=== PATIENT | female | born 1940 | race Caucasian/White ===

== ENCOUNTER 2016-11-29 12:31 | Day surgery (SDC) | payer OTHER ==
[2016-11-27 14:58] VITALS: BMI 25.7
--- NOTE | 2016-11-29 15:31 | HP ---
Admitting History and Physical - Admission Chief Complaint: Abnormal radiologic findings History of Present Illness: 76 yo Para 5 with abnormal radiologic finding is Pre op for D&C Hysteroscopy. History Source: Patient Limitations to Obtaining History: No Limitations - Past Medical History ...: No ...Para: 5 - Past Surgical History Past Surgical History: Yes: None - Smoking History Smoking history: Never smoked - Alcohol/Substance Use Hx Alcohol Use: No History of Substance Use: reports: None - Social History Usual Living Arrangement: Yes: With Spouse History of Recent Travel: No Home Medications - Allergies Allergies/Adverse Reactions: Allergies Allergy/AdvReac Type Severity Reaction Status Date / Time Penicillins Allergy Verified 11/27/16 14:58 - Home Medications Home Medications: Ambulatory Orders Aspirin [ASA -] 81 mg PO DAILY 11/27/16 Losartan Potassium 50 mg PO DAILY 11/27/16 Metformin HCl [Metformin HCl ER] 1,000 mg PO BID 11/27/16 Nebivolol HCl [Bystolic] 5 mg PO DAILY 11/27/16 Family Disease History - Family Disease History Family History: Unremarkable Review of Systems - Review of Systems Constitutional: reports: No Symptoms Eyes: reports: No Symptoms HENT: reports: No Symptoms Neck: reports: No Symptoms Respiratory: reports: No Symptoms Gastrointestinal: reports: No Symptoms Genitourinary: reports: No Symptoms Breasts: reports: No Symptoms Reported Musculoskeletal: reports: No Symptoms Integumentary: reports: No Symptoms Neurological: reports: No Symptoms Endocrine: reports: No Symptoms Hematology/Lymphatic: reports: No Symptoms Psychiatric: reports: No Symptoms Pain Intensity: 0 Physical Examination Vital Signs: Vital Signs Temperature 98.3 F 11/29/16 13:24 Pulse Rate 77 11/29/16 13:24 Respiratory Rate 18 11/29/16 13:24 Blood Pressure 154/77 11/29/16 13:24 O2 Sat by Pulse Oximetry (%) 97 11/29/16 13:29 Constitutional: Yes: Well Nourished Eyes: Yes: Conjunctiva Clear HENT: Yes: Atraumatic Neck: Yes: Supple Respiratory: Yes: Regular Gastrointestinal: Yes: Normal Bowel Sounds Neurological: Yes: Alert, Oriented ...Motor Strength: WNL Psychiatric: Yes: Alert, Oriented Problem List - Problems (1) Endometrial polyp Code(s): N84.0 - POLYP OF CORPUS UTERI Assessment/Plan Endometrial polyp Pre op for D&C Hysteroscopy Consent signed Anesthesia to see patient
--- NOTE | 2016-11-29 15:53 | OP ---
Operative Note - Note: Operative Date: 11/29/16 Pre-Operative Diagnosis: Endometrial polyp Operation: D&C Hysteroscopy Findings: Endometrial lesions not consistent with polyps Post-Operative Diagnosis: Same as Pre-op Surgeon: More Casper Anesthesia: General Specimens Removed: Endometrial curettings Estimated Blood Loss (mls): 5
[2016-11-29] MEDS ORDERED: PROPOFOL 20 ML ONE (16:22)
[2016-11-29] MEDS ORDERED: KETOROLAC TROMETHAMINE 30 MG/1 ML VIAL ONE (16:32)
[2016-11-29] MEDS ORDERED: ONDANSETRON 4 MG/2 ML VIAL ONE (16:32)
[2016-11-29] MEDS ORDERED: DEXAMETHASONE SOD PHOSPHATE 4 MG/1 ML VIAL ONE (16:32)
[2016-11-29] MEDS ORDERED: oxyCODONE HCL 5 MG TABLET PO PRN ×2 (17:01)
[2016-11-29] MEDS ORDERED: PROMETHAZINE HCL 25 MG/1 ML VIAL IVPUSH PRN (17:01)
[2016-11-29] MEDS ORDERED: ONDANSETRON 4 MG/2 ML VIAL IVPUSH PRN (17:01)
[2016-11-29] MEDS ORDERED: LACTATED RINGERS SOLUTION 1,000 ML IV SCH (17:15)
[2016-11-29] MEDS ORDERED: oxyCODONE HCL 5 MG TABLET ONE (17:24)
[2016-11-29 17:47] VITALS: TEMP 97.8
[2016-11-29 19:31] VITALS: BP 176/80; PULSE 64
--- NOTE | 2016-12-04 15:43 | PATH ---
Surgical Pathology Report Patient Name: ADELE PACHECO [facility]. Rec. #: [id number] /Age/Gender: 1940 (Age: 76) / F Account: [id number] Location: [facility] Taken: 11/29/2016 Received: 11/30/2016 Reported: 12/04/2016 Physicians: More Casper M.D. Specimen(s) Received ENDOMETRIAL CURETTINGS Clinical History Postmenopausal bleeding Final Diagnosis ENDOMETRIUM, CURETTAGE: HIGH-GRADE ENDOMETRIAL ADENOCARCINOMA (SEE COMMENT). BACKGROUND FRAGMENTS OF ATROPHIC ENDOMETRIUM AND SCANT FRAGMENTS OF BENIGN ENDOCERVICAL TISSUE. Comment: The sections show fragments of a high grade adenocarcinoma comprised of large neoplastic cells with irregular nuclei with prominent nucleoli and variable amount of amphophilic and clear cytoplasm. The neoplastic cells are arranged in sheets with focal papillary structures with hyalinization. Numerous interspersed neutrophils are present. Immunohistochemical stains performed at [facility] [employer] [place], [place] ([id number]) on block #2 and interpreted at [facility] show the following: The tumor cells are positive for PAX8, focally weakly reactive for p53 immunostain, and are negative for WT1 and p16 immunostains; Her2 IHC is negative (0%). ER and HI immunostains performed and interpreted at [facility] on block #3 show weak reactivity for ER in approximately 30% of cells; HI is negative. Overall, the morphologic findings and the immunoprofile are of high grade adenocarcinoma, suggestive of clear cell carcinoma of endometrium. Other high-grade endometrial adenocarcinomas may show similar morphologic findings; however, serous carcinoma is usually strongly positive for p53 and p16; high-grade endometrioid adenocarcinoma usually retains moderate to strong ER reactivity. DNA Mismatch Repair (MMR) protein expression analysis by IHC performed at the [employer] [place], [place] ([id number]) on block #2 and interpreted [facility] shows the following: Results: hMLH-1 DNA Mismatch Repair Protein: Intact nuclear expression hMSH-2 DNA Mismatch Repair Protein: Intact nuclear expression hMSH-6 DNA Mismatch Repair Protein: Intact nuclear expression PMS2 DNA Mismatch Repair Protein: Intact nuclear expression Interpretation: No defect in DNA Mismatch Repair (MMR) protein expression is identified by IHC. This result is usually seen in MSI-H stable tumors and is not associated with HNPCC (Vela syndrome). The case was discussed with Dr. Casper on 12/04/16. Electronically Signed Jarek Aguilar M.D. Gross Description Received in formalin labeled "endometrial curetting" is a 3.3 x 3.0 x 0.4 cm aggregate of perez-brown soft tissue fragments admixed with blood clot. The formalin is filtered and the specimen is entirely submitted in 3 cassettes. 11/30/2016 saudi11/30/2016
== END 2016-11-29 19:05 | disposition home or self-care (01) ==
LOC: JASU-SURG 12:31
PROVIDERS: ATTEND Obstetrics & Gynecology
PROC: 0UDB8ZX Extraction of Endometrium, Via Natural or Artificial Opening Endoscopic, Diagnostic (ICD-10-PCS; principal; 2016-11-29 14:30)
DX: R93.8 Abnormal findings on diagnostic imaging of other specified body structures (principal)
CPT/HCPCS: 88305-TC; 88342-TC; 94760

== ENCOUNTER 2016-12-18 11:59 | Inpatient (IN) | payer OTHER ==
[2016-12-15 17:10] VITALS: BMI 26.9
[2016-12-18] MEDS ORDERED: ROPIVACAINE HCL 0.5% 30ML VIAL ONE ×3 (13:07→16:41)
[2016-12-18] MEDS ORDERED: MIDAZOLAM HCL 2 MG/2 ML SINGLE DOSE VIAL ONE ×2 (13:09)
[2016-12-18] MEDS ORDERED: PROPOFOL 20 ML ONE ×2 (13:41→13:59)
[2016-12-18] MEDS ORDERED: ROCURONIUM BROMIDE 50 MG/5 ML VIAL ONE (13:59)
[2016-12-18] MEDS ORDERED: PROMETHAZINE HCL 25 MG/1 ML VIAL IVPB PRN (14:07)
[2016-12-18] MEDS ORDERED: PROMETHAZINE HCL 25 MG/1 ML VIAL IVPUSH PRN (14:07)
[2016-12-18] MEDS ORDERED: ONDANSETRON 4 MG/2 ML VIAL IVPUSH PRN ×2 (14:07)
[2016-12-18] MEDS ORDERED: DEXAMETHASONE SOD PHOSPHATE 4 MG/1 ML VIAL IVPUSH PRN (14:07)
[2016-12-18] MEDS ORDERED: HYDROmorphone *PCA* 10MG/50ML DISP.SYRIN PCA SCH (14:15)
[2016-12-18] MEDS ORDERED: LACTATED RINGERS SOLUTION 1,000 ML IV SCH (14:15)
--- NOTE | 2016-12-18 14:21 | HP ---
Admitting History and Physical - Admission Chief Complaint: Abnormal vaginal bleeding History of Present Illness: 76 yo Para 5, with h/o Hypertension and Heart disease, diagnosed with endometrial adenocarcinoma, is Pre op for total abdominal hysterectomy and lymph node biopsy. Oncologist Dr. Garcia is present. History Source: Patient Limitations to Obtaining History: No Limitations - Past Medical History ...: No ...Para: 5 - Past Surgical History Additional Past Surgical History: Heart surgery - Smoking History Smoking history: Never smoked Have you smoked in the past 12 months: No - Alcohol/Substance Use Hx Alcohol Use: No History of Substance Use: reports: None - Social History Usual Living Arrangement: Yes: With Spouse History of Recent Travel: No Home Medications - Allergies Allergies/Adverse Reactions: Allergies Allergy/AdvReac Type Severity Reaction Status Date / Time Penicillins Allergy "I CAN'T Verified 12/18/16 13:02 REMEMBER" - Home Medications Home Medications: Ambulatory Orders Aspirin [ASA -] 81 mg PO DAILY 11/27/16 Metformin HCl [Metformin HCl ER] 1,000 mg PO AC 11/27/16 Nebivolol HCl [Bystolic] 5 mg PO DAILY 11/27/16 Esomeprazole Magnesium 20 mg PO DAILY 12/18/16 Ferrous Sulfate [Feosol] 325 mg PO DAILY 12/18/16 Furosemide 20 mg PO DAILY 12/18/16 Losartan/Hydrochlorothiazide [Hyzaar 50-12.5 Tablet] 1 each PO DAILY 12/18/16 Spironolactone 25 mg PO DAILY 12/18/16 Family Disease History - Family Disease History Family History: Unremarkable Review of Systems - Review of Systems Constitutional: reports: No Symptoms Eyes: reports: No Symptoms HENT: reports: No Symptoms Neck: reports: No Symptoms Cardiovascular: reports: No Symptoms Respiratory: reports: No Symptoms Gastrointestinal: reports: Other (Abdominal p) Genitourinary: reports: Vaginal Bleeding Breasts: reports: No Symptoms Reported Musculoskeletal: reports: No Symptoms Integumentary: reports: No Symptoms Neurological: reports: No Symptoms Endocrine: reports: No Symptoms Hematology/Lymphatic: reports: No Symptoms Psychiatric: reports: No Symptoms Pain Intensity: 5 Physical Examination Vital Signs: Vital Signs Temperature 98.4 F 12/18/16 12:59 Pulse Rate 87 12/18/16 12:59 Respiratory Rate 20 12/18/16 12:59 Blood Pressure 105/53 12/18/16 12:59 O2 Sat by Pulse Oximetry (%) 99 12/18/16 12:55 Constitutional: Yes: Well Nourished Eyes: Yes: Conjunctiva Clear HENT: Yes: Atraumatic Neck: Yes: Supple Cardiovascular: Yes: Regular Rate and Rhythm Respiratory: Yes: Regular, CTA Bilaterally Gastrointestinal: Yes: Normal Bowel Sounds Neurological: Yes: Alert, Oriented ...Motor Strength: WNL Psychiatric: Yes: Alert, Oriented Problem List - Problems (1) Endometrial adenocarcinoma Code(s): C54.1 - MALIGNANT NEOPLASM OF ENDOMETRIUM (2) Abnormal vaginal bleeding Code(s): N93.9 - ABNORMAL UTERINE AND VAGINAL BLEEDING, UNSPECIFIED Assessment/Plan Endometrial adenocarcinoma Pre op for WILIAM / BSO and lymph node biopsy Consent signed Anesthesia to see patient
[2016-12-18] MEDS ORDERED: HEPARIN NA (PORCINE) 5,000 UNITS/ML 1ML VIAL ONE (14:26)
[2016-12-18] MEDS ORDERED: HEPARIN NA (PORCINE) 5,000 UNITS/ML 1ML VIAL SQ ONE ×2 (14:30)
[2016-12-18] MEDS ORDERED: ceFAZolin SODIUM 1 GM VIAL ONE (14:36)
[2016-12-18] MEDS ORDERED: ceFAZolin SODIUM 1 GM VIAL IVPB ONE (14:40)
[2016-12-18] MEDS ORDERED: DEXAMETHASONE SOD PHOSPHATE 4 MG/1 ML VIAL ONE (14:44)
[2016-12-18] MEDS ORDERED: ONDANSETRON 4 MG/2 ML VIAL ONE (14:44)
[2016-12-18] MEDS ORDERED: BUPIVACAINE HCL/PF 0.5% (5MG/ML) 10 ML VIAL ONE (15:49)
[2016-12-18] MEDS ORDERED: ACETAMINOPHEN 1000 MG/100 ML VIAL (NON FORMULARY) IVPB PRN (15:52)
--- NOTE | 2016-12-18 15:56 | OP ---
Operative Note - Note: Operative Date: 12/18/16 Pre-Operative Diagnosis: Endometrial adenocarcinoma Operation: Total abdominal hysterectomy / Pelvic lavage / Lypmph nodes biopsy / Omentectomy Findings: Hard uterus and enlarged lymph nodes Post-Operative Diagnosis: Same as Pre-op Surgeon: More Casper (Dr. Garcia) Anesthesia: General Estimated Blood Loss (mls): 100
[2016-12-18] MEDS ORDERED: NEOSTIGMINE METHYLSULFATE 0.5 MG/ML - 10 ML MDV ONE (16:00)
--- NOTE | 2016-12-18 16:23 | OPR ---
12/18/16 INTRAOP CONSULT I WAS CALLED BY DR. PRICE INTROOPERATIVELY FOR PATIENT WITH ADVANCED METASTATIC ENDOMETRIAL CANCER DIAGNOSIS: HIGH GRADE ENDOMETRIAL CANCER PROCEDURE: TOTAL ABDOMINAL HYSTERECTOMY, BILATERAL SALPINGOOOPHORECTOMY, PELVIC AND PARAAORTIC NODE DISSECTION AND OMENTAL BIOPSY SURGEON: ANA CAMACHO CO-SURGEON: Jaguar PRICE ANESTHESIA: GENERAL EBL: 200CC OP FINDINGS: 10 CM UTERUS WITH TUMOR INFILTRATING TO THE SEROSA AND POSSIBLE EXTENSION TO THE BLADDER FLAP. ENLARGED PELVIC AND PARA-AORTIC NODES RESIDUAL NONE PROCEDURE: UNDER GENERAL ANESTHESIA, SKIN WAS PREPED AND DRAPED FOR ABDOMINAL SURGERY. A VERTICAL INCISION WAS MADE. INCISION CARRIED THROUGH FASCIA TO PERITONEAL CAVITY. PELVIC WASHINGS WAS PERFORMED. BOWELS WERE PACKED AWAY. A BELFOUR RETRACTOR WAS PLACED. POSTERIOR LEAFLETS WERE OPENED. URETERS WERE IDENTIFIED. IP LIGAMENTS WERE CAUTERIZED AND CUT. BLADDER FLAP WERE DISSECTED AWAY. UTERINE VESSELS WERE SKELELONIZED. UTERINE VESSELS WERE CLAMPED CUT AND LIGATED. CARDINAL LIGAMENTS WERE CLAMPED CUT AND LIGATED. VAGINA WAS ENTERED AND UTERUS WAS REMOVED. VAGINA WAS CLOSED WITH VICRYL SUTURES INTERRUPTEDLY. PELVIC AND PARA-AORTIC NODES WERE DISSECTED. BULKY NODES WERE REMOVED CAREFULLY WITHOUT INJURY. THIS WAS DONE ON BOTH SIDES. A SMALL PIECE OF OMENTUM WAS RESECTED WITH LIGASURE WITHOUT INJURY. AT THE END WE MADE SURE NO INJURIES WERE NOTED. ALL SURGICAL SITES WERE DRY. COUNTS WERE CORRECT TIMES THREE. FASCIA WAS CLOSED WITH VICRYL 1. 4o MONOCRYL WAS USED TO CLOSE THE SKIN. SHE WAS EXTUBATED AND TRANSPORTED TO THE RECOVERY IN STABLE CONDITIONS. ANA CAMACHO MD
[2016-12-18] MEDS ORDERED: ACETAMINOPHEN INJECTION 100 ML IVPB ONE (16:28)
[2016-12-18] MEDS ORDERED: HYDROmorphone *PCA* 10MG/50ML DISP.SYRIN PCA ONE (16:28)
[2016-12-18] MEDS: DEXTROSE 5%-LACTATED RINGERS 1,000 ML IV SCH (18:47)
[2016-12-19] MEDS: DEXTROSE 5%-LACTATED RINGERS 1,000 ML IV SCH (01:23)
--- NOTE | 2016-12-19 07:59 | PN ---
Progress Note, Physician Chief Complaint: Abnormal vaginal bleeding History of Present Illness: 76 yo Para 5 with h/o abnormal vaginal bleeding caused by endometrial adenocarcinoma, is status post WILIAM / BSO and lypmph nodes biopsy. Patient seen and evaluated. She's lying in bed. No complaints. - Current Medication List Current Medications: Active Medications Acetaminophen (Tylenol -) 650 mg PO Q4H PRN PRN Reason: FEVER OR PAIN Aspirin (Asa -) 81 mg PO DAILY [facility] Fentanyl (Sublimaze Injection -) 50 mcg IVPUSH [id number] PRN PRN Reason: PAIN Stop: 12/21/16 14:08 Furosemide (Lasix -) 20 mg PO DAILY [facility] HCTZ/Losartan Potassium (Hyzaar -) 1 tab PO DAILY [facility] Hydromorphone HCl (Dilaudid Seat Joiner Chainstitch -) 0 mg FILTER PLANT SUPERVISOR ASDIR ALEX PRN Reason: Protocol Lactated Ringer's (Lactated Ringers Solution) 1,000 mls @ 125 mls/hr IV ASDIR ALEX Dextrose/Lactated Ringer's (D5-Lr -) 1,000 mls @ 125 mls/hr IV ASDIR ALEX Last Admin: 12/19/16 01:23 Dose: 125 mls/hr Losartan Potassium (Cozaar -) 50 mg PO DAILY [facility] Nebivolol (Bystolic -) 5 mg PO DAILY [facility] Nebivolol (Bystolic -) 5 mg PO DAILY [facility] Non-Formulary Medication (Esomeprazole Magnesium [Esomeprazole Magnesium]) 20 mg PO DAILY [facility] Non-Formulary Medication (Ferrous Sulfate [Feosol]) 325 mg PO DAILY [facility] Non-Formulary Medication (Metformin Hcl [Metformin Hcl Er]) 1,000 mg PO AC [facility] Promethazine HCl (Phenergan Injection -) 12.5 mg IVPB Q6H PRN PRN Reason: NAUSEA AND/OR VOMITING Spironolactone (Aldactone -) 25 mg PO DAILY [facility] - Objective Vital Signs: Vital Signs Temperature 99.8 F H 12/19/16 06:00 Pulse Rate 88 12/19/16 06:00 Respiratory Rate 18 12/19/16 06:00 Blood Pressure 116/54 12/19/16 06:00 O2 Sat by Pulse Oximetry (%) 100 12/18/16 20:26 Constitutional: Yes: Well Nourished Eyes: Yes: Conjunctiva Clear HENT: Yes: Atraumatic Neck: Yes: Supple Cardiovascular: Yes: Regular Rate and Rhythm Respiratory: Yes: Regular Gastrointestinal: Yes: Normal Bowel Sounds Genitourinary: Yes: WNL Extremities: Yes: Other (Venodyne boots in place) Wound/Incision: Yes: Clean/Dry, Well Approximated Neurological: Yes: Alert, Oriented Psychiatric: Yes: Alert, Oriented Problem List - Problems (1) Endometrial adenocarcinoma Code(s): C54.1 - MALIGNANT NEOPLASM OF ENDOMETRIUM (2) Abnormal vaginal bleeding Code(s): N93.9 - ABNORMAL UTERINE AND VAGINAL BLEEDING, UNSPECIFIED (3) Status post total abdominal hysterectomy and bilateral salpingo- oophorectomy (WILIAM-BSO) Code(s): Z90.710 - ACQUIRED ABSENCE OF BOTH CERVIX AND UTERUS Z90.722 - ACQUIRED ABSENCE OF OVARIES, BILATERAL Z90.79 - ACQUIRED ABSENCE OF OTHER GENITAL ORGAN(S) Assessment/Plan Status post WILIAM / BSO D/C FILTER PLANT SUPERVISOR D/C Merino catheter Percocet PRN pain Clear liquid diet Continue post op care
--- NOTE | 2016-12-19 08:12 | PN ---
Progress Note, Physician Chief Complaint: s/p open TAHBSO under general anesthesia History of Present Illness: post op day one with hydromorphone [employer] as post op pain management. - Current Medication List Current Medications: Active Medications Acetaminophen (Tylenol -) 650 mg PO Q4H PRN PRN Reason: FEVER OR PAIN Aspirin (Asa -) 81 mg PO DAILY [facility] Fentanyl (Sublimaze Injection -) 50 mcg IVPUSH [id number] PRN PRN Reason: PAIN Stop: 12/21/16 14:08 Furosemide (Lasix -) 20 mg PO DAILY [facility] HCTZ/Losartan Potassium (Hyzaar -) 1 tab PO DAILY [facility] Hydromorphone HCl (Dilaudid Chief Librarian Music Department -) 0 mg [employer] ASDIR ALEX PRN Reason: Protocol Lactated Ringer's (Lactated Ringers Solution) 1,000 mls @ 125 mls/hr IV ASDIR ALEX Dextrose/Lactated Ringer's (D5-Lr -) 1,000 mls @ 125 mls/hr IV ASDIR ALEX Last Admin: 12/19/16 01:23 Dose: 125 mls/hr Losartan Potassium (Cozaar -) 50 mg PO DAILY [facility] Nebivolol (Bystolic -) 5 mg PO DAILY [facility] Nebivolol (Bystolic -) 5 mg PO DAILY [facility] Non-Formulary Medication (Esomeprazole Magnesium [Esomeprazole Magnesium]) 20 mg PO DAILY [facility] Non-Formulary Medication (Ferrous Sulfate [Feosol]) 325 mg PO DAILY [facility] Non-Formulary Medication (Metformin Hcl [Metformin Hcl Er]) 1,000 mg PO AC [facility] Promethazine HCl (Phenergan Injection -) 12.5 mg IVPB Q6H PRN PRN Reason: NAUSEA AND/OR VOMITING Spironolactone (Aldactone -) 25 mg PO DAILY [facility] - Objective Vital Signs: Vital Signs Temperature 99.8 F H 12/19/16 06:00 Pulse Rate 88 12/19/16 06:00 Respiratory Rate 18 12/19/16 06:00 Blood Pressure 116/54 12/19/16 06:00 O2 Sat by Pulse Oximetry (%) 100 12/18/16 20:26 Constitutional: Yes: Well Nourished Cardiovascular: Yes: WNL Respiratory: Yes: WNL Gastrointestinal: Yes: Tenderness Assessment/Plan Patient reports minimal pain, controlled by [employer], no adverse reactions to anesthetic, no nausea or vomiting, [employer] discontinued by primary team this am. Dept of anesthesia will sign off care at this time.
[2016-12-19] MEDS ORDERED: PCA PUMP KEY 1 EACH EACH ONE (08:24)
[2016-12-19] MEDS ORDERED: LOSARTAN 50MG/HCTZ 12.5MG 1 TAB (FP) PO SCH (10:00)
[2016-12-19] MEDS ORDERED: NEBIVOLOL 10 MG TABLET (FP) PO SCH (10:00)
[2016-12-19] MEDS: ASPIRIN 81 MG CHEWABLE TABLETS PO SCH (10:07)
[2016-12-19] MEDS: ACETAMINOPHEN 325 MG TABLET (FP) PO PRN ×2 (10:07→14:46)
[2016-12-19] MEDS: FUROSEMIDE 20 MG TABLET (FP) PO SCH (10:08)
[2016-12-19] MEDS: PANTOPRAZOLE 20 MG TABLET (FP) PO SCH (10:08)
[2016-12-19] MEDS: LOSARTAN POTASSIUM 50 MG TABLET (FP) PO SCH (10:08)
[2016-12-19] MEDS: SPIRONOLACTONE 25 MG TABLET (FP) PO SCH (10:08)
[2016-12-19] MEDS: FERROUS SO4 325 MG TABLET (FP) PO SCH (10:08)
[2016-12-19] MEDS ORDERED: metFORMIN HCL 500 MG TABLET (FP) PO SCH (10:15)
[2016-12-19] MEDS: NEBIVOLOL 5 MG TABLET (FP) PO SCH (10:43)
[2016-12-20] MEDS: metFORMIN HCL 500 MG TABLET (FP) PO SCH ×2 (06:18→16:26)
[2016-12-20] MEDS: ACETAMINOPHEN 325 MG TABLET (FP) PO PRN ×3 (06:23→21:21)
[2016-12-20] MEDS ORDERED: metFORMIN HCL 500 MG TABLET (FP) PO SCH (07:00)
--- NOTE | 2016-12-20 07:58 | PN ---
Progress Note (SOAP) - Subjective Chief Complaint: Pt doing well SP hysterectomy - Current Medications Current Medications: Active Medications Acetaminophen (Tylenol -) 650 mg PO Q4H PRN PRN Reason: FEVER OR PAIN Last Admin: 12/20/16 06:23 Dose: 650 mg Aspirin (Asa -) 81 mg PO DAILY [facility] Last Admin: 12/19/16 10:07 Dose: 81 mg Ferrous Sulfate (Feosol -) 325 mg PO DAILY [facility] Last Admin: 12/19/16 10:08 Dose: 325 mg Furosemide (Lasix -) 20 mg PO DAILY [facility] Last Admin: 12/19/16 10:08 Dose: 20 mg Losartan Potassium (Cozaar -) 50 mg PO DAILY [facility] Last Admin: 12/19/16 10:08 Dose: 50 mg Metformin HCl (Glucophage -) 1,000 mg PO BIDAC [facility] Last Admin: 12/20/16 06:18 Dose: 1,000 mg Nebivolol (Bystolic -) 5 mg PO DAILY [facility] Last Admin: 12/19/16 10:43 Dose: 5 mg Pantoprazole Sodium (Protonix -) 20 mg PO DAILY [facility] Last Admin: 12/19/16 10:08 Dose: 20 mg Promethazine HCl (Phenergan Injection -) 12.5 mg IVPB Q6H PRN PRN Reason: NAUSEA AND/OR VOMITING Spironolactone (Aldactone -) 25 mg PO DAILY [facility] Last Admin: 12/19/16 10:08 Dose: 25 mg - Objective Vital Signs: Vital Signs Temperature 99.1 F 12/19/16 22:00 Pulse Rate 95 H 12/19/16 22:00 Respiratory Rate 18 12/19/16 22:00 Blood Pressure 126/65 12/19/16 22:00 O2 Sat by Pulse Oximetry (%) 96 12/19/16 13:10 Constitutional: Yes: Well Nourished, No Distress Gastrointestinal: Yes: Soft Wound/Incision: Yes: Open to air, Dressing Removed Problem List - Problems (1) Status post total abdominal hysterectomy and bilateral salpingo- oophorectomy (WILIAM-BSO) Code(s): Z90.710 - ACQUIRED ABSENCE OF BOTH CERVIX AND UTERUS Z90.722 - ACQUIRED ABSENCE OF OVARIES, BILATERAL Z90.79 - ACQUIRED ABSENCE OF OTHER GENITAL ORGAN(S) Assessment/Plan POD2 SP WILIAM due to adenocarcinoma Plan OOB continue present management
[2016-12-20] MEDS: SPIRONOLACTONE 25 MG TABLET (FP) PO SCH (09:57)
[2016-12-20] MEDS: FUROSEMIDE 20 MG TABLET (FP) PO SCH (09:57)
[2016-12-20] MEDS: PANTOPRAZOLE 20 MG TABLET (FP) PO SCH (09:57)
[2016-12-20] MEDS: ASPIRIN 81 MG CHEWABLE TABLETS PO SCH (09:57)
[2016-12-20] MEDS: LOSARTAN POTASSIUM 50 MG TABLET (FP) PO SCH (09:57)
[2016-12-20] MEDS: NEBIVOLOL 5 MG TABLET (FP) PO SCH (09:57)
[2016-12-20] MEDS: FERROUS SO4 325 MG TABLET (FP) PO SCH (09:57)
[2016-12-20 23:34] VITALS: PULSE 89
[2016-12-21] MEDS: ACETAMINOPHEN 325 MG TABLET (FP) PO PRN (05:42)
[2016-12-21] MEDS: metFORMIN HCL 500 MG TABLET (FP) PO SCH (06:44)
--- NOTE | 2016-12-21 07:50 | DS ---
Physical Examination Vital Signs: Vital Signs Temperature 99.3 F 12/20/16 22:00 Pulse Rate 89 12/20/16 22:00 Respiratory Rate 16 12/20/16 22:00 Blood Pressure 131/80 12/20/16 22:00 O2 Sat by Pulse Oximetry (%) 97 12/20/16 09:00 Constitutional: Yes: No Distress Eyes: Yes: Conjunctiva Clear HENT: Yes: Atraumatic Neck: Yes: Supple, Trachea Midline Cardiovascular: Yes: Regular Rate and Rhythm Respiratory: Yes: Regular, CTA Bilaterally Gastrointestinal: Yes: Normal Bowel Sounds Musculoskeletal: Yes: WNL Extremities: Yes: WNL Edema: No Discharge Summary Reason For Visit: ENDOMETRIAL ADENOCARCINOMA Current Active Problems Abnormal vaginal bleeding (Acute) Endometrial adenocarcinoma (Acute) Status post total abdominal hysterectomy and bilateral salpingo-oophorectomy ( WILIAM-BSO) (Acute) Procedures: Principal: Total Abdominal Hysterectomy Other Procedures: Pelvuic lavage / Lymph nodes biopsy / Omentectomy Hospital Course: Patient received DVT prophylaxis and additional dosage of antibiotic post op Condition: Fair - Instructions Diet, Activity, Other Instructions: Diabetic diet Wound care F/U with MD in 2 weeks Disposition: HOME - Home Medications Comprehensive Discharge Medication List: Ambulatory Orders Aspirin [ASA -] 81 mg PO DAILY 11/27/16 Metformin HCl [Metformin HCl ER] 1,000 mg PO AC 11/27/16 Nebivolol HCl [Bystolic] 5 mg PO DAILY 11/27/16 Esomeprazole Magnesium 20 mg PO DAILY 12/18/16 Ferrous Sulfate [Feosol] 325 mg PO DAILY 12/18/16 Furosemide 20 mg PO DAILY 12/18/16 Losartan/Hydrochlorothiazide [Hyzaar 50-12.5 Tablet] 1 each PO DAILY 12/18/16 Spironolactone 25 mg PO DAILY 12/18/16
--- NOTE | 2016-12-21 08:07 | CONSULT ---
Consult Reason for Consultation:: DM - History of Present Illness History of Present Illness: 76 Y/O FEMALE WITH H/O HTN AND DM S/P HYSTERECTOMY WITH ELEVATED BLOOD SUGARS PT STATES SUGAR IS WELL CONTROLLED AT HOME - Past Medical History Cardio/Vascular: Yes: HTN ...: No Endocrine: Yes: Diabetes Mellitus - Alcohol/Substance Use Hx Alcohol Use: No History of Substance Use: reports: None - Smoking History Smoking history: Never smoked Have you smoked in the past 12 months: No - Social History History of Recent Travel: No Home Medications - Allergies Allergies/Adverse Reactions: Allergies Allergy/AdvReac Type Severity Reaction Status Date / Time Penicillins Allergy "I CAN'T Verified 12/18/16 13:02 REMEMBER" - Home Medications Home Medications: Ambulatory Orders Aspirin [ASA -] 81 mg PO DAILY 11/27/16 Metformin HCl [Metformin HCl ER] 1,000 mg PO AC 11/27/16 Nebivolol HCl [Bystolic] 5 mg PO DAILY 11/27/16 Esomeprazole Magnesium 20 mg PO DAILY 12/18/16 Ferrous Sulfate [Feosol] 325 mg PO DAILY 12/18/16 Furosemide 20 mg PO DAILY 12/18/16 Losartan/Hydrochlorothiazide [Hyzaar 50-12.5 Tablet] 1 each PO DAILY 12/18/16 Spironolactone 25 mg PO DAILY 12/18/16 Ibuprofen [Motrin -] 600 mg PO Q4H PRN #60 tablet 12/21/16 Review of Systems - Review of Systems Gastrointestinal: reports: Abdominal Pain (--POSTOP--IMPROVING) Physical Exam Vital Signs: Vital Signs Temperature 99.3 F 12/20/16 22:00 Pulse Rate 89 12/20/16 22:00 Respiratory Rate 16 12/20/16 22:00 Blood Pressure 131/80 12/20/16 22:00 O2 Sat by Pulse Oximetry (%) 97 12/20/16 09:00 Cardiovascular: Yes: Regular Rate and Rhythm Respiratory: Yes: Regular, CTA Bilaterally Gastrointestinal: Yes: Normal Bowel Sounds, Soft, Tenderness (MININMAL ON DEEP PALPATION MIDLINE SCAR ECHYMOSIS) Edema: No Problem List - Problems (1) Status post total abdominal hysterectomy and bilateral salpingo- oophorectomy (WILIAM-BSO) Assessment/Plan: PLAN PER FOSTER WINDER Code(s): Z90.710 - ACQUIRED ABSENCE OF BOTH CERVIX AND UTERUS Z90.722 - ACQUIRED ABSENCE OF OVARIES, BILATERAL Z90.79 - ACQUIRED ABSENCE OF OTHER GENITAL ORGAN(S) (2) Diabetes Assessment/Plan: BGM CONTINUE WITH METFORMIN PT WILL CALL IF BGM ELEVATED Code(s): E11.9 - TYPE 2 DIABETES MELLITUS WITHOUT COMPLICATIONS (3) HTN (hypertension) Assessment/Plan: CONTROLLED SAME MEDS Code(s): I10 - ESSENTIAL (PRIMARY) HYPERTENSION
[2016-12-21] MEDS: LOSARTAN POTASSIUM 50 MG TABLET (FP) PO SCH (09:28)
[2016-12-21] MEDS: PANTOPRAZOLE 20 MG TABLET (FP) PO SCH (09:28)
[2016-12-21] MEDS: FERROUS SO4 325 MG TABLET (FP) PO SCH (09:28)
[2016-12-21] MEDS: FUROSEMIDE 20 MG TABLET (FP) PO SCH (09:28)
[2016-12-21] MEDS: ASPIRIN 81 MG CHEWABLE TABLETS PO SCH (09:28)
[2016-12-21] MEDS: NEBIVOLOL 5 MG TABLET (FP) PO SCH (09:28)
[2016-12-21] MEDS: SPIRONOLACTONE 25 MG TABLET (FP) PO SCH (09:28)
--- NOTE | 2016-12-21 09:47 | OP ---
DATE OF OPERATION: 12/18/2016 PREOPERATIVE DIAGNOSIS: Uterine adenocarcinoma high grade. POSTOPERATIVE DIAGNOSIS: Uterine adenocarcinoma high grade. PROCEDURE: Abdominal hysteroscopy. SURGEON: More Casper MD DESCRIPTION OF PROCEDURE: The patient was taken to the operating room where general anesthesia was administered. The patient was then prepped and draped in proper sterile fashion. A vertical incision was then made and carried down to the underlying layer of fascia. The fascia was incised in the midline and extended superiorly and inferiorly. Then the peritoneum was then identified and entered sharply with the Metzenbaum scissors. The bowel was packed with moist laparotomy sponges, and the uterus was exteriorized. The uterus was found to be hard like a rock, which is suspicious for high-grade malignancy. Then the oncologist was called for consult. The oncologist, Dr. Galeano, came to proceed with total abdominal hysterectomy and pelvic lavage and lymph node biopsies and omentectomy. I assisted Dr. Galeano with the remaining surgery. MORE CASPER M.D. [id number]
[2016-12-21 10:27] VITALS: BP 142/69; TEMP 98
--- NOTE | 2016-12-21 16:54 | PATH ---
Surgical Pathology Report Patient Name: ADELE PACHECO [facility]. Rec. #: [id number] /Age/Gender: 1940 (Age: 76) / F Account: [id number] Location: [facility] OBS/FOREST PATHOLOGIST Taken: 12/18/2016 Received: 12/19/2016 Reported: 12/21/2016 Physicians: Cherry Quevedo Specimen(s) Received A: UTERUS, BILATERAL FALLOPIAN TUBES AND BILATERAL OVARIES B: RIGHT PELVIC LYMPH NODE C: RIGHT PARA -AORTIC LYMPH NODE D: LEFT PELVIC LYMPH NODE E: LEFT PARA -AORTIC LYMPH NODE F: OMENTUM Clinical History Endometrial carcinoma Final Diagnosis A. 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 TUMOR SIZE: AT LEAST 7.0 CM. TUMOR EXTENT: TUMOR INVOLVES THE ENTIRE THICKNESS OF MYOMETRIUM AND INVOLVES UTERINE SEROSA. CERVIX: EXTENSIVELY INVOLVED BY TUMOR. RIGHT AND LEFT PARAMETRIA: INVOLVED BY TUMOR. RIGHT AND LEFT OVARIES: INVOLVING TUMOR WITH ANGIOLYMPHATIC SPREAD. FALLOPIAN TUBES: NOT INVOLVED BY TUMOR, UNILATERAL HEMO- AND HYDROSALPINX, PARATUBAL CYST. LYMPHOVASCULAR INVASION: PRESENT. PATHOLOGIC STAGING: AT LEAST pT3b pN2 [FIGO IIIC] (SEE COMMENT). Comment: The sections show a high grade neoplasm composed of an epithelial component comprised of nests of large cells with irregular nuclei with prominent nucleoli and there variably amount of amphophilic cytoplasm and focal cytoplasmic clearing and a malignant appearing stromal component comprised of neoplastic cells with large clear irregular nuclei, prominent nucleoli and cytoplasmic clearing with frequent mitotic figures. These findings favor carcinosarcoma (Mixed Malignant Mullerian) tumor. No heterologous elements are seen. The prior endometrial curettage specimen ([id number]) showed high-grade endometrial neoplasm composed of epithelial cells without stromal component seen in the current specimen. The tumor involves the entire thickness of myometrium and involves uterine serosa, cervix, ovaries and bilateral parametria. Extension to other organs cannot be determined in this specimen, but has to be examined clinically. B. LYMPH NODES, RIGHT PELVIC, DISSECTION: TWO LYMPH NODES, POSITIVE FOR METASTATIC CARCINOMA (2/2) WITH EXTRANODAL EXTENSIONS. C. LYMPH NODE, RIGHT PARA-AORTIC, DISSECTION: ONE LYMPH NODE WITH FOCAL ANGIOLYMPHATIC INVOLVEMENT BY CARCINOMA (1/1). D. LYMPH NODES, LEFT PELVIC, DISSECTION: TWO LYMPH NODES, POSITIVE FOR METASTATIC CARCINOMA (2/2) WITH EXTRANODAL EXTENSIONS. E. LYMPH NODES, LEFT PARA-AORTIC, DISSECTION: ONE OF THREE LYMPH NODES POSITIVE FOR METASTATIC CARCINOMA (1/3) WITH EXTENSIVE NECROSIS AND EXTRANODAL EXTENSIONS. F. OMENTUM, OMENTECTOMY: BENIGN FATTY TISSUE, NOT INVOLVED BY CARCINOMA. Comment: Refer to [id number] for the pelvic cytology results. Comments Endometrial Carcinoma: Surgical Pathology Cancer Case Summary (Checklist) Based on AJCC/UICC TNM, 7th edition and FIGO 2008 Annual Report Specimen _x_ Uterine corpus _x_ Cervix _x_ Bilateral ovaries _x_ Bilateral fallopian tubes _x_ Left parametrium _x_ Right parametrium _x_ Omentum Lymph Node Sampling _x_ Performed: _x_ Pelvic lymph nodes _x_ Para-aortic lymph nodes Specimen Integrity _x_ Intact hysterectomy specimen Tumor Size Greatest dimension: at least 7.0 cm Histologic Type: carcinosarcoma (mixed malignant mullerian tumor) Histologic Grade _x_ G3: Poorly differentiated Myometrial Invasion _x_ Present, full thickness, with involvement of serosa Involvement of Cervix _x_ Invasion of cervical stromal connective tissue Extent of Involvement of Other Organs _x_ Bilateral ovaries _x_ Involved _x_ Bilateral fallopian tubes _x_ Not involved _x_ Right and left parametria _x_ Involved _x_ Omentum _x_ Not involved Lymph-Vascular Invasion _x_ Present Pathologic Staging (pTNM [FIGO]) Primary Tumor: at least pT3b [FIGO IIIC] Regional Lymph Nodes: pN2 Distant Metastasis (pM): not identified in the examined material Electronically Signed Jarek Aguilar M.D. Gross Description A. Received in formalin labeled "uterus, fallopian tubes and ovaries" is a 289 g uterus with an attached cervix and no attached adnexa. The undesignated, bilateral fallopian tubes and ovaries are separately received within the same container. The specimen measures 10.7 cm from superior to inferior, 8.7 cm from left to right and 5.8 cm from anterior to posterior. The serosa is perez-hassan with focal bulging. The attached cervix measures 3 cm in length and averages 2.5 cm in diameter. The ectocervix is perez and smooth. The endocervix is lined by perez trabecular mucosa. The endometrial cavity measures 5.5 cm in length and 4.8 cm from cornu to cornu. The endometrial cavity contains a 5.5 x 4.8 x 2.0 cm red-brown hemorrhagic infarcted tissue. The remaining endometrium is perez-red, thickened, measuring up to 0.4 cm in thickness. The myometrium is perez and firm, averaging 2.6 cm in thickness. Arbitrarily designated fallopian tube 1 is fimbriated and measures 4 cm in length. The tube appears previously ligated. The outer surface is perez-parks and smooth with a focal attached paratubal cyst. Sectioning reveals focal blood within the proximal lumen. The attached arbitrarily designated ovary 1 measures 2.7 x 1.0 x 0.9 cm. The outer surface is perez and smooth. Sectioning reveals perez, unremarkable ovarian parenchyma. Arbitrarily designated fallopian tube 2 is fimbriated and measures 3.5 cm in length. The outer surface is perez-parks and smooth with focal attached paratubal cysts. Sectioning reveals focal blood within the proximal lumen. The attached arbitrarily designated ovary 2 measures 3.1 x 1.1 x 0.9 cm. The outer surface is perez and smooth. Sectioning reveals perez, unremarkable ovarian parenchyma. [employer] Travel Counselor sections are submitted in 23 cassettes as follows: 1-anterior cervix; 2-posterior cervix; 3-anterior lower uterine segment; 4-posterior lower uterine segment; 5-left parametrium; 6-right parametrium; 5-7-gktlbthd endomyometrium; 30-26-mdvmwvhrn endomyometrium; 13-14-blood clot from endometrial cavity; 99-621-hyjjtuur submitted fallopian tube 1; 56-36-azzojrwi submitted ovary 1; 20-entirely submitted fallopian tube 2; 12-83-ssacttyd submitted ovary 2. B. Received in formalin labeled "right pelvic lymph node" are 2 perez lymph nodes measuring 1.9 x 1.2 x 1.2 cm and 2.5 x 1.3 x 1.0 cm. The specimens are serially sectioned and entirely submitted in 4 cassettes as follows: 1-2-one whole lymph node; 3-4-one whole lymph node. C. Received in formalin labeled "para-aortic node" is a 1.7 x 1.0 x 0.3 cm portion of perez-yellow soft tissue, possibly containing a lymph node. The specimen is submitted in toto in one cassette. D. Received in formalin labeled "left pelvic lymph node" are 2 perez lymph nodes measuring 1.7 x 1.5 x 0.6 cm and 3.0 x 1.6 x 1.2 cm. The specimens are serially sectioned and entirely submitted in 4 cassettes as follows: 1-one whole bisected lymph node; 2-4-one whole serially sectioned lymph node. E. Received in formalin labeled "left para-aortic lymph node" are 2 perez, irregular lymph nodes measuring 1.0 x 0.9 x 0.9 cm and 1.0 x 0.5 x 0.4 cm. The nodes are serially sectioned and entirely submitted in 3 cassettes as follows: 1-2-one whole trisected lymph node; 3-one whole bisected lymph node. F. Received in formalin labeled "omentum" is a 7.0 x 4.5 x 0.8 cm portion of yellow, lobulated adipose tissue, consistent with omentum. Sectioning reveals unremarkable yellow, lobulated adipose tissue. No masses or lesions are identified. [employer] Counselor sections are submitted in 5 cassettes. 12/19/2016 saudi12/19/2016
--- NOTE | 2016-12-21 16:55 | PATH ---
Cytology Non-Gynecological Report Patient Name: ADELE PACHECO [facility]. Rec. #: [id number] /Age/Gender: 1940 (Age: 76) / F Account: [id number] [facility] OBS/PAINT LINE OPERATOR Taken: 12/18/2016 Received: 12/19/2016 Reported: 12/21/2016 Physicians: More Casper M.D. Specimen(s) Received PELVIC WASHINGS Clinical History Endometrial cancer Final Diagnosis PELVIC WASHINGS: SATISFACTORY FOR EVALUATION. CLUSTERS OF DEGENERATED/NECROTIC ATYPICAL CELLS WITH SURROUNDING ACUTE INFLAMMATION PRESENT, HIGHLY SUSPICIOUS FOR INVOLVEMENT BY TUMOR. Comment: Refer to [id number] for the surgical pathology results. Electronically Signed Jarek Aguilar M.D. Gross Description Received is 50 cc of peachy in color fluid fresh. One cytofunnel slide and one cell block are made.
== END 2016-12-21 12:15 | disposition home or self-care (01) | DRG 735 ==
LOC: JSAMEDAYSX 11:59 → EDSTATUS 14:30 → J3W 18:15
PROVIDERS: ADMIT Obstetrics & Gynecology; ATTEND Obstetrics & Gynecology
PROC: 07TC0ZZ Resection of Pelvis Lymphatic, Open Approach (ICD-10-PCS; 2016-12-18)
PROC: 0UT90ZZ Resection of Uterus, Open Approach (ICD-10-PCS; 2016-12-18)
PROC: 0UTC0ZZ Resection of Cervix, Open Approach (ICD-10-PCS; 2016-12-18)
PROC: 0UT70ZZ Resection of Bilateral Fallopian Tubes, Open Approach (ICD-10-PCS; 2016-12-18)
PROC: 0UT20ZZ Resection of Bilateral Ovaries, Open Approach (ICD-10-PCS; 2016-12-18)
PROC: 0DBS0ZX (ICD-10-PCS; 2016-12-18)
PROC: 0UJD8ZZ Inspection of Uterus and Cervix, Via Natural or Artificial Opening Endoscopic (ICD-10-PCS; principal; 2016-12-18 14:30)
DX: C54.1 Malignant neoplasm of endometrium (principal); N93.9 Abnormal uterine and vaginal bleeding, unspecified; I10 Essential (primary) hypertension; E11.9 Type 2 diabetes mellitus without complications; Z90.710 Acquired absence of both cervix and uterus; Z90.722 Acquired absence of ovaries, bilateral; Z90.79 Acquired absence of other genital organ(s)
CPT/HCPCS: 71020-TC; 86850; 86900; 86901; 88108; 88305-TC; 88307-TC; 88309-TC; 94010; 94760; J1644

== ENCOUNTER 2017-01-22 19:40 | Emergency (ER) | payer OTHER ==
[2017-01-22 19:52] VITALS: BP 141/68; PULSE 91; TEMP 98.7; BMI 27.4
--- NOTE | 2017-01-22 20:16 | PDOC ---
History of Present Illness - General Chief Complaint: Vaginal Bleeding Stated Complaint: VAGINAL BLEEDING Time Seen by Provider: 01/22/17 20:13 - History of Present Illness Initial Comments: 01/22/17 20:53 CHIEF COMPLAINT: HISTORY OF PRESENT ILLNESS: 76 yo F with hx of endometrial adenocarcinoma s/p abdominal hysterectomy, salpingooopherectomy, presents to ED with vaginal bleeding x 2 days. Patient denies any pain, cramping, fever, chills, nausea, vomiting, or diarrhea. No recent travel or sick contacts. PAST MEDICAL HISTORY: Denies past medical history FAMILY HISTORY: Denies SOCIAL HISTORY:Denies tobacco, alcohol, illicit drug use. SURGICAL HISTORY: Denies ALLERGIES: No known drug allergies REVIEW OF SYSTEMS General/Constitutional: Denies fever or chills. Denies weakness, weight change. HEENT: Denies change in vision. Denies ear pain or discharge. Denies sore throat. Cardiovascular: Denies chest pain or shortness of breath. Respiratory: Denies cough, wheezing, or hemoptysis. Gastrointestinal: Denies nausea, vomiting, diarrhea or constipation. Denies rectal bleeding. Genitourinary: Denies dysuria, frequency, or change in urination. Musculoskeletal: Denies joint or muscle swelling or pain. Denies neck or back pain. Skin and breasts: Denies rash or easy bruising. Neurologic: Denies headache, vertigo, loss of consciousness, or loss of sensation. Psychiatric: Denies depression or anxiety. Endocrine: Denies increased thirst. Denies abnormal weight change. Hematologic/Lymphatic: Denies anemia, easy bleeding, or history of blood clots. Allergic/Immunologic: Denies hives or skin allergy. Denies latex allergy. PHYSICAL EXAM General Appearance: Well-appearing, appropriately dressed. No apparent distress , no intoxication. HEENT: EOMI, PERRLA, normal ENT inspection, normal voice, TMs normal, pharynx normal. No conjunctival pallor. No photophobia, scleral icterus. Neck: Supple. Trachea midline. No tenderness, rigidity, carotid bruit, stridor , lymphadenopathy, or thyromegaly. Respiratory/Chest: Lungs CTAB. No shortness of breath, chest tenderness, respiratory distress, accessory muscle use. No crackles, rales, rhonchi, stridor , wheezing, dullness Cardiovascular: RRR. S1, S2. No JVD, murmur, bradycardia, tachycardia. Vascular Pulses: Dorsalis-Pedis (R): 2+, Dorsalis-Pedis (L): 2+ Gastrointestinal/Abdominal: Normal bowel sounds. Abdomen soft, non-distended. No tenderness or rebound tenderness. No organomegaly, pulsatile mass, guarding , hernia, hepatomegaly, splenomegaly. Lymphatic: No adenopathy, tenderness. Musculoskeletal/Extremities: Normal inspection. FROM of all extremities, normal capillary refill. Pelvis Stable. No CVA tenderness. No tenderness to extremities, pedal edema, swelling, erythema or deformity. Integumentary: Appropriate color, dry, warm. No cyanosis, erythema, jaundice or rash Neurologic: hot cell technician II-XII intact. Fully oriented, alert. Appropriate mood/affect. Motor strength 5/5. No appreciable EOM palsy, facial droop or sensory deficit. 01/22/17 21:33 01/22/17 21:34 Past History - Past Medical History Allergies/Adverse Reactions: Allergies Allergy/AdvReac Type Severity Reaction Status Date / Time Penicillins Allergy "I CAN'T Verified 01/22/17 19:49 REMEMBER" Home Medications: Ambulatory Orders Aspirin [ASA -] 81 mg PO DAILY 11/27/16 Metformin HCl [Metformin HCl ER] 1,000 mg PO AC 11/27/16 Nebivolol HCl [Bystolic] 5 mg PO DAILY 11/27/16 Esomeprazole Magnesium 20 mg PO DAILY 12/18/16 Ferrous Sulfate [Feosol] 325 mg PO DAILY 12/18/16 Furosemide 20 mg PO DAILY 12/18/16 Losartan/Hydrochlorothiazide [Hyzaar 50-12.5 Tablet] 1 each PO DAILY 12/18/16 Spironolactone 25 mg PO DAILY 12/18/16 Ibuprofen [Motrin -] 600 mg PO Q4H PRN #60 tablet 12/21/16 Anemia: No Asthma: No Cancer: No Cardiac Disorders: (Mitral valve replacement) CVA: No COPD: No CHF: No Dementia: No Diabetes: Yes (NIDDM) GI Disorders: Yes (REFLUX) Disorders: No HTN: Yes Hypercholesterolemia: No Liver Disease: No Seizures: No Thyroid Disease: No - Surgical History Cardiac Surgery: Yes (MITRAL VALVE REPAIR PROSTHETIC VALVE) - Psycho/Social/Smoking Cessation Hx Suicidal Ideation: No Smoking History: Never smoked Have you smoked in the past 12 months: No Information on smoking cessation initiated: No Hx Alcohol Use: No Drug/Substance Use Hx: No Substance Use Type: None Hx Substance Use Treatment: No *Physical Exam - Vital Signs Last Vital Signs Temp Pulse Resp BP Pulse Ox 98.7 F 91 H 20 141/68 96 01/22/17 19:49 01/22/17 19:49 01/22/17 19:49 01/22/17 19:49 01/22/17 19:49 ED Treatment Course - LABORATORY CBC & Chemistry Diagram: 01/22/17 21:00 01/22/17 21:04 *DC/Admit/Observation/Transfer Diagnosis at time of Disposition: Vaginal bleeding, Status post total abdominal hysterectomy and bilateral salpingo-oophorectomy (WILIAM-BSO) - Discharge Dispostion Disposition: HOME Condition at time of disposition: Stable Admit: No - Referrals Referrals: Lino Forrest MD [Primary Care Provider] - More Casper MD [Staff Physician] - - Patient Instructions Printed Discharge Instructions: DI for Vaginal Bleeding Additional Instructions: As discussed, please follow up with Dr. Casper and Dr. Garcia for continued monitoring. If you experience severe bleeding (more than one soaked pad per hour), develop shortness of breath, chest pain, palpitations, lightheadedness, or any new or worsening symptoms, please return to the ER. Finley se discuti, por favor sigue con el Dr. Casper y el Dr. Garcia para monitoreo continuo. Si experimenta sangrado logan (ms de todd almohadilla empapada por hora), desarrolle dificultad para respirar, dolor en el pecho, palpitaciones, aturdimiento o cualquier nuevo o empeoramiento de los sntomas, por favor regrese a la chiara de emergencias.
[2017-01-22 21:11] LABS: BASOPHIL 0.5 % (0-2.0); EOSINOPHIL 0.7 % (0-4.5); MCH 27.3 pg (25.7-33.7); MCHC 32.1 g/dl (32.0-36.0); MEAN CELL VOLUME 84.9 fl (80-96); NEUTROPHILS 71.6 % (42.8-82.8); PLATELET COUNT 249 K/MM3 (134-434); WHITE BLOOD COUNT 10.3 K/mm3 (4.0-10.0)
[2017-01-22 21:34] LABS: INR 1.06 (0.82-1.09); PROTHROMBIN TIME (PATIENT) 11.7 SEC (9.98-11.88)
[2017-01-22 21:43] LABS: ALBUMIN 3.4 g/dl (3.4-5.0); ANION GAP 9 (8-16); BILIRUBIN,TOTAL 0.6 mg/dL (0.2-1.0); CALCIUM 9.2 mg/dL (8.5-10.1); CO2 29 mmol/L (21-32); CREATININE 0.8 mg/dL (0.55-1.02); GLUCOSE,RANDOM 148 mg/dL (74-106); SGOT/AST 18 U/L (15-37); SGPT/ALT 18 U/L (12-78); TOT PROT 7.2 g/dl (6.4-8.2)
[2017-01-22 21:44] LABS: ALK PHOS 74 U/L (45-117)
--- NOTE | 2017-01-22 22:44 | CON.OBG ---
Consult Consult Specialty:: OBGYN Reason for Consultation:: Vaginal bleeding - History of Present Illness Chief Complaint: Vaginal bleeding History of Present Illness: 76 yo with personal h/o of metastatic endometrial adenocarcinoma, status post WILIAM/BSO and Lymph nodes biopsy, presents to ER c/o vaginal bleeding associated with abdominal pain. She's been followed by Production Lead / Oncologist. - History Source History Provided By: Patient Limitations to Obtaining History: No Limitations - Past Medical History Cardio/Vascular: Yes: HTN ...: No Heme/Onc: Yes: Other (Chemotherapy pending) Endocrine: Yes: Diabetes Mellitus - Past Surgical History Additional Surgical History: WILIAM / BSO - Alcohol/Substance Use Hx Alcohol Use: No History of Substance Use: reports: None - Smoking History Smoking history: Never smoked Have you smoked in the past 12 months: No - Social History Usual Living Arrangement: With Spouse History of Recent Travel: No Home Medications - Allergies Allergies/Adverse Reactions: Allergies Allergy/AdvReac Type Severity Reaction Status Date / Time Penicillins Allergy "I CAN'T Verified 01/22/17 19:49 REMEMBER" - Home Medications Home Medications: Ambulatory Orders Aspirin [ASA -] 81 mg PO DAILY 11/27/16 Metformin HCl [Metformin HCl ER] 1,000 mg PO AC 11/27/16 Nebivolol HCl [Bystolic] 5 mg PO DAILY 11/27/16 Esomeprazole Magnesium 20 mg PO DAILY 12/18/16 Ferrous Sulfate [Feosol] 325 mg PO DAILY 12/18/16 Furosemide 20 mg PO DAILY 12/18/16 Losartan/Hydrochlorothiazide [Hyzaar 50-12.5 Tablet] 1 each PO DAILY 12/18/16 Spironolactone 25 mg PO DAILY 12/18/16 Ibuprofen [Motrin -] 600 mg PO Q4H PRN #60 tablet 12/21/16 Family Disease History - Family Disease History Family History: Unremarkable Review of Systems - Review of Systems Constitutional: reports: No Symptoms Eyes: reports: No Symptoms HENT: reports: No Symptoms Neck: reports: No Symptoms Cardiovascular: reports: No Symptoms Respiratory: reports: No Symptoms Gastrointestinal: reports: No Symptoms Genitourinary: reports: Pain, Vaginal Bleeding Breasts: reports: No Symptoms Reported Neurological: reports: No Symptoms Hematology/Lymphatic: reports: No Symptoms Psychiatric: reports: No Symptoms Physical Exam-WINE CONSULTANT Vital Signs: Vital Signs Temperature 98.7 F 01/22/17 19:49 Pulse Rate 91 H 01/22/17 19:49 Respiratory Rate 20 01/22/17 19:49 Blood Pressure 141/68 01/22/17 19:49 O2 Sat by Pulse Oximetry (%) 96 01/22/17 19:49 Constitutional: Yes: Anxious Eyes: Yes: Conjunctiva Clear HENT: Yes: Atraumatic Neck: Yes: Supple, Trachea Midline Cardiovascular: Yes: Regular Rate and Rhythm Respiratory: Yes: Regular, CTA Bilaterally Gastrointestinal: Yes: Normal Bowel Sounds ...Rectal Exam: Yes: WNL Renal/: Yes: WNL Pelvis: Yes: WNL External Genitalia: Yes: Bleeding Vaginal Exam: Yes: Normal Labs: CBC, BMP 01/22/17 21:00 01/22/17 21:04 Assessment/Plan Personal h/o metastatic endometrial adenocarcinoma Vaginal bleeding F/U with Heematologyst / Oncologist Continue expectant management
== END 2017-01-22 22:13 | disposition home or self-care (01) ==
LOC: JER 19:40
DX: N93.8 Other specified abnormal uterine and vaginal bleeding (principal); Z98.890 Other specified postprocedural states; Z90.710 Acquired absence of both cervix and uterus; Z85.42 Personal history of malignant neoplasm of other parts of uterus; I10 Essential (primary) hypertension; E11.9 Type 2 diabetes mellitus without complications; Z79.84 Long term (current) use of oral hypoglycemic drugs; K21.9 Gastro-esophageal reflux disease without esophagitis; Z95.2 Presence of prosthetic heart valve; Z79.82 Long term (current) use of aspirin
CPT/HCPCS: 36415; 80053; 85025; 85610; 85730; 86850; 86900; 86901; 99282-25

== ENCOUNTER 2017-01-29 15:42 | Emergency (ER) | payer OTHER ==
[2017-01-29 15:49] VITALS: TEMP 98.7; BMI 26.9
--- NOTE | 2017-01-29 16:50 | PDOC ---
Attending Attestation - Resident Resident Name: Charlee Milligan - ED Attending Attestation I have performed the following: I have examined & evaluated the patient, The case was reviewed & discussed with the resident, I agree w/resident's findings & plan, Exceptions are as noted - HPI HPI: 01/29/17 20:15 76yo female with recent hysterectomy and b/l salpingectomy presents for lower abd pain, decreased urine output, decreased stool output which has been soft and n/v today. Pt has been on abx - both cipro and macrobid currently for a UTI. Pt now with abd pain, n/v today and b./l flank pain. Pt states subjective fevers at home. No cp/sob. No rashes. No vaginal complaints. No other complaints. - Physicial Exam PE: 01/29/17 20:17 Gen: aaox3, nad Head: nc/at HEENT: eomi, mmm neck: supple heart: +s1s2 reg lungs: cta b/l abd: vertical incision to lower abd c/d/healed, no surroudning erythema or drainage from the site. soft abd, mild lower abd ttp, b/l cva ttp ext: no c/c/e skin: no rashes neuro: cn ii-xii grossly intact, no focal deficits. - Medical Decision Making 01/29/17 20:19 a/P: 76yo female with lower abd pain, decreased stool and flank pain -concern for poss SBO vs pyelo vs eneritis vs uti that has failed outpt abx -labs -ct abd/pelvis -nausea control -pt scheduled for ct chest/abd/pelvis tomorrow, will add chest to todays ct so that the patient does not need to return to the radiology department tomorrow -will monitor and reassess 01/29/17 20:21 pt with low mag, will replace elevated wbc +blood in UA 01/29/17 20:[address], pt signed out to the oncoming ED physician
--- NOTE | 2017-01-29 16:50 | PDOC ---
History of Present Illness - General Chief Complaint: Nausea/Vomiting Stated Complaint: ABD PAIN (PCP SENT) Time Seen by Provider: 01/29/17 16:50 - History of Present Illness Initial Comments: 76 year old female with HTN, heart disease, status post total abdominal hysterectomy and bilateral salpingo-oophorectomy (WILIAM-BSO) one month prior presenting with nausea, vomiting, and crampy abdominal pain radiating to her back bilaterally for the past 4 days. he was seen on 01/22/17 here for vaginal bleeding then seen at her gynecolgist during which she was diagnosed with a UTI and treated with 2 days of cipro and macrobid. A few days into her abx therapy she started to have the previously mentioned Gi symptoms. Her surgery last month went without issue and was originally indicated for a uterine adenocarcinoma. She describes the abdominal pain as crampy and in her inferior abdomen diffusely that has recently started to radiate to her back/ flanks bilaterally. They do not have an exacerbating/ relieving factors. She does admit to some subjective chills, nausea, and non-bilious/ non-bloody emesis. S She has been passing bowel movements and gas but that has been decreasing over the last few days. 01/29/17 16:55 Past History - Past Medical History Allergies/Adverse Reactions: Allergies Allergy/AdvReac Type Severity Reaction Status Date / Time Penicillins Allergy "I CAN'T Verified 01/29/17 15:45 REMEMBER" Home Medications: Ambulatory Orders Aspirin [ASA -] 81 mg PO DAILY 11/27/16 Metformin HCl [Metformin HCl ER] 1,000 mg PO BID 11/27/16 Furosemide 20 mg PO DAILY 12/18/16 Losartan/Hydrochlorothiazide [Hyzaar 50-12.5 Tablet] 1 each PO DAILY 12/18/16 Spironolactone 25 mg PO DAILY 12/18/16 Calcium Carb, Citrate/Vit D3 [Calcium + D3 ER Tablet] 1 each PO BID 01/29/17 Ciprofloxacin HCl [Cipro] 500 mg PO BID 01/29/17 Esomeprazole Magnesium [Nexium 24Hr] 20 mg PO DAILY 01/29/17 Glipizide Xl [Glucotrol Xl -] 5 mg PO DAILY 01/29/17 Lipase/Protease/Amylase [Creon Dr 24,000 Units Capsule] 1 each PO BID 01/29/17 Nebivolol HCl [Bystolic] 5 mg PO DAILY 01/29/17 Nitrofurantoin Monohyd/M-Cryst [Macrobid -] 100 mg PO BID 01/29/17 Simvastatin 10 mg PO 01/29/17 Vitamin B Complex 1 each PO DAILY 01/29/17 Anemia: No Asthma: No Cancer: Yes (uterine carcinosarcoma) Cardiac Disorders: (Mitral valve replacement) CVA: No COPD: No CHF: No Dementia: No Diabetes: Yes (NIDDM) GI Disorders: Yes (REFLUX) Disorders: No HTN: Yes Hypercholesterolemia: No Liver Disease: No Seizures: No Thyroid Disease: No - Surgical History Cardiac Surgery: Yes (MITRAL VALVE REPAIR PROSTHETIC VALVE) - Psycho/Social/Smoking Cessation Hx Suicidal Ideation: No Smoking History: Never smoked Have you smoked in the past 12 months: No Hx Alcohol Use: No Drug/Substance Use Hx: No Substance Use Type: None Hx Substance Use Treatment: No Review of Systems - Review of Systems Constitutional: Yes: Chills, Loss of Appetite, Weakness. No: Fever HEENTM: No: Blurred Vision, Tearing Respiratory: No: Shortness of Breath, Wheezing Cardiac (ROS): No: Chest Pain, Edema, Irregular Heart Rate ABD/GI: Yes: Nausea, Vomiting. No: Diarrhea : No: Burning, Discharge, Frequency *Physical Exam - Vital Signs Last Vital Signs Temp Pulse Resp BP Pulse Ox 98.7 F 87 18 103/75 98 01/29/17 15:46 01/29/17 15:46 01/29/17 15:46 01/29/17 15:46 01/29/17 15:46 - Physical Exam General Appearance: Yes: Nourished, Appropriately Dressed. No: Apparent Distress HEENT: positive: EOMI, Normal ENT Inspection Neck: positive: Trachea midline, Normal Thyroid. negative: Tender, Rigid Respiratory/Chest: positive: Lungs Clear, Normal Breath Sounds. negative: Chest Tender, Respiratory Distress Cardiovascular: positive: Regular Rhythm, Regular Rate, S1, S2, Other (Midline sternal scar well healed.). negative: Edema, JVD, Murmur Gastrointestinal/Abdominal: positive: Normal Bowel Sounds (Hyperactive bowel sounds), Tender (Lower abdominal tenderness bilaterally diffuse.), Flat, Soft, Other (Lower abdominal midline scar, well healed.) Musculoskeletal: positive: CVA Tenderness (Left sided.) Extremity: positive: Normal Capillary Refill, Normal Inspection Integumentary: positive: Normal Color, Dry, Warm Neurologic: positive: Fully Oriented, Alert, Normal Mood/Affect ED Treatment Course - LABORATORY CBC & Chemistry Diagram: 01/29/17 17:04 01/29/17 17:04 Medical Decision Making - Medical Decision Making 76 year old with recent abdominals surgery with GI symptoms and CVA tenderness concerning for pyelo vs. urinary stone vs. obstruction vs. medication reaction/ intolerance. CBC significant for elevated WBC (13) and elevated creatinine 1.1 [address] get [address] abdomen/ pelvis with PO contrast. Patient signed out to Dr.. Londono and Dr. Brown. 01/29/17 21:22 01/29/17 21:25 *DC/Admit/Observation/Transfer Diagnosis at time of Disposition: Pyelonephritis
[2017-01-29 17:29] LABS: BASOPHIL 0.2 % (0-2.0); EOSINOPHIL 0.2 % (0-4.5); MCH 27.5 pg (25.7-33.7); MEAN CELL VOLUME 83.4 fl (80-96); NEUTROPHILS 83.5 % (42.8-82.8); PLATELET COUNT 263 K/MM3 (134-434); RDW 17.1 % (11.6-15.6); WHITE BLOOD COUNT 13.4 K/mm3 (4.0-10.0)
[2017-01-29 17:33] LABS: INR 1.27 (0.82-1.09)
[2017-01-29 18:04] LABS: ALBUMIN 3.2 g/dl (3.4-5.0); ALK PHOS 73 U/L (45-117); ANION GAP 12 (8-16); BILIRUBIN,TOTAL 0.8 mg/dL (0.2-1.0); CALCIUM 9.1 mg/dL (8.5-10.1); CO2 28 mmol/L (21-32); CREATININE 1.1 mg/dL (0.55-1.02); GLUCOSE,RANDOM 139 mg/dL (74-106); MAGNESIUM 1.3 mg/dL (1.8-2.4); SGOT/AST 28 U/L (15-37); SGPT/ALT 26 U/L (12-78); TOT PROT 6.8 g/dl (6.4-8.2)
[2017-01-29 18:14] LABS: URINE APPEARANCE TURBID; URINE BILIRUBIN NEGATIVE (NEGATIVE); URINE BLOOD 3+ (NEGATIVE); URINE COLOR BROWN; URINE GLUCOSE (UA) NEGATIVE (NEGATIVE); URINE KETONE 1+ (NEGATIVE); URINE NITRITE NEGATIVE (NEGATIVE); URINE UROBILINOGEN 0.2 mg/dL (0.2-1.0)
[2017-01-29 18:16] LABS: URINE PROTEIN 2+ (NEGATIVE)
[2017-01-29 19:10] LABS: CALCIUM OXALATE CRYSTALS RARE /hpf (NONE SEEN); URINE MUCUS RARE; URINE RBC 3197 /hpf (0-3); URINE WBC 18 /hpf (3-5)
--- NOTE | 2017-01-29 19:57 | PDOC ---
*Physical Exam - Vital Signs Last Vital Signs Temp Pulse Resp BP Pulse Ox 98.7 F 87 18 103/75 98 01/29/17 15:46 01/29/17 15:46 01/29/17 15:46 01/29/17 15:46 01/29/17 15:46 <Kraig Londono - Last Filed: 01/29/17 19:57> - Vital Signs Last Vital Signs Temp Pulse Resp BP Pulse Ox 98.7 F 87 18 103/75 98 01/29/17 15:46 01/29/17 15:46 01/29/17 15:46 01/29/17 15:46 01/29/17 15:46 <Alfredo Brown - Last Filed: 01/30/17 06:11> ED Treatment Course - LABORATORY CBC & Chemistry Diagram: 01/29/17 17:04 01/29/17 17:04 - ADDITIONAL ORDERS Additional order review: Laboratory Results 01/29/17 01/29/17 01/29/17 18:06 17:10 17:04 INR 1.27 H Sodium 134 L Potassium 4.4 Chloride 94 L Carbon Dioxide 28 Anion Gap 12 BUN 23 H Creatinine 1.1 H D Creat Clearance w eGFR 48.42 Random Glucose 139 H Calcium 9.1 Magnesium 1.3 L Total Bilirubin 0.8 D AST 28 D ALT 26 D Alkaline Phosphatase 73 Total Protein 6.8 Albumin 3.2 L Urine Color Brown Urine Appearance Turbid Urine pH 6.0 Urine Protein 2+ H Urine Glucose (UA) Negative Urine Ketones 1+ H Urine Blood 3+ H Urine Nitrite Negative Urine Bilirubin Negative Urine Urobilinogen 0.2 Urine RBC 3197 Urine WBC 18 Calcium Oxalate Crystal Rare Urine Mucus Rare 01/29/17 17:04 RBC 3.82 MCV 83.4 MCHC 33.0 RDW 17.1 H MPV 10.0 Neutrophils % 83.5 H Lymphocytes % 6.6 L D Monocytes % 9.5 Eosinophils % 0.2 Basophils % 0.2 <Kraig Londono - Last Filed: 01/29/17 19:57> - LABORATORY CBC & Chemistry Diagram: 01/29/17 17:04 01/29/17 17:04 - ADDITIONAL ORDERS Additional order review: Laboratory Results 01/29/17 01/29/17 01/29/17 18:06 17:10 17:04 INR 1.27 H Sodium 134 L Potassium 4.4 Chloride 94 L Carbon Dioxide 28 Anion Gap 12 BUN 23 H Creatinine 1.1 H D Creat Clearance w eGFR 48.42 Random Glucose 139 H Calcium 9.1 Magnesium 1.3 L Total Bilirubin 0.8 D AST 28 D ALT 26 D Alkaline Phosphatase 73 Total Protein 6.8 Albumin 3.2 L Urine Color Brown Urine Appearance Turbid Urine pH 6.0 Ur Specific [place] 1.020 Urine Protein 2+ H Urine Glucose (UA) Negative Urine Ketones 1+ H Urine Blood 3+ H Urine Nitrite Negative Urine Bilirubin Negative Urine Urobilinogen 0.2 Urine RBC 3197 Urine WBC 18 Calcium Oxalate Crystal Rare Urine Mucus Rare 01/29/17 17:04 RBC 3.82 MCV 83.4 MCHC 33.0 RDW 17.1 H MPV 10.0 Neutrophils % 83.5 H Lymphocytes % 6.6 L D Monocytes % 9.5 Eosinophils % 0.2 Basophils % 0.2 - RADIOLOGY Radiology Studies Ordered: Category Date Time Status ABDOMEN & PELVIS CT W/O CONTR [CT] Stat CT Scan 01/29/17 20:53 Completed - Medications Given in the ED: ED Medications Discontinued Medications Generic Name Dose Route Start Last Admin Trade Name Freq PRN Reason Stop Dose Admin Magnesium Sulfate 2 gm 01/29/17 20:21 01/29/17 20:41 Magnesium Sulfate IVPB 01/29/17 20:22 2 gm ONCE ONE Administration <Alfredo Brown - Last Filed: 01/30/17 06:11> Medical Decision Making - Medical Decision Making 01/29/17 19:57 Patient signed out to me by day team, Dr. Milligan. Pending CT and disposition. <Kraig Londono - Last Filed: 01/29/17 19:57> - Medical Decision Making 01/30/17 02:10 Pt feeling improved tolerating oral intake abd soft nontender no cva tenderness CT reviewed, c/w possible meatstatic disease d/w patient and family using clinic charge nurse - will have pt fu with as outpatient will give some zofran for nausea return precautions were discussed I discussed the physical exam findings, ancillary test results and final diagnoses with the patient. I answered all of the patient's questions. The patient was satisfied with the care received and felt comfortable with the discharge plan and treatment plan. The patient will call their primary care physician within 24 hours to arrange follow-up and will return to the Emergency Department with any new, persistent or worsening symptoms. <Alfredo Brown - Last Filed: 01/30/17 06:11> *DC/Admit/Observation/Transfer <Kraig Londono - Last Filed: 01/29/17 19:57> - Discharge Dispostion Admit: No <Alfredo Brown - Last Filed: 01/30/17 06:11> Diagnosis at time of Disposition: Vomiting Qualifiers: Vomiting type: unspecified Vomiting Intractability: non-intractable Nausea presence: with nausea Qualified Code(s): R11.2 - Nausea with vomiting, unspecified Abdominal pain Qualifiers: Abdominal location: generalized Qualified Code(s): R10.84 - Generalized abdominal pain - Discharge Dispostion Disposition: HOME Condition at time of disposition: Improved - Prescriptions Prescriptions: Ondansetron [Zofran -] 4 mg PO BID PRN #21 tablet PRN Reason: Nausea - Referrals Referrals: Kelvin Agrawal MD [Primary Care Provider] - Sarkis Johnson [Staff Physician] - - Patient Instructions Printed Discharge Instructions: DI for Vomiting -- Adult Additional Instructions: Vuelva al departamento de urgencias de inmediato con cualquier nuevo, persistente o empeorando los sntomas, incluyendo dolor abdominal empeorando, fiebres, incapacidad para tolerar la ingesta oral, dolor en el pecho, dificultad para respirar o cualquier otra preocupacin. Mantngase marivel hidratado. [place] zofran para las nuseas Santoyo tomografa computarizada mostr algunos ganglios linfticos y otros hallazgos anormales - siga el procedimiento con el dr. Johnson para revisar los resultados. [place] visita al departamento de emergencias no est completa sin un seguimiento con santoyo mdico para santoyo reevaluacin. Por favor, asegrese de que santoyo mdico revise los resultados de santoyo evaluacin de emergencia. Return to the emergency department immediately with ANY new, persistent or worsening symptoms including worsening abdominal pain, fevers, inability to tolerate oral intake, chest pain, shortness of breath or any other concerns. Stay well hydrated. Take zofran for nausea Your CT Scan showed some lymphnodes and other abnormal findings - plesae follow up with dr. Johnson to review the results. Your emergency department visit is not complete without a followup with your doctor for reevaluation. Please make sure your doctor reviews the results of your emergency evaluation. Print Language: JAPANESE
[2017-01-29] MEDS ORDERED: MAGNESIUM SULF 50% (8.12 MEQ/2 ML-1 GM VIAL) IVPB ONE (20:21)
[2017-01-29] MEDS ORDERED: MAGNESIUM SULF 50% (8.12 MEQ/2 ML-1 GM VIAL) ONE ×2 (20:32→20:33)
[2017-01-30 02:25] VITALS: BP 130/66; PULSE 70
== END 2017-01-30 02:25 | disposition home or self-care (01) ==
LOC: JER 15:42
PROC: 3E033GC Introduction of Other Therapeutic Substance into Peripheral Vein, Percutaneous Approach (ICD-10-PCS; principal; 2017-01-29)
DX: N12 Tubulo-interstitial nephritis, not specified as acute or chronic (principal); Z85.42 Personal history of malignant neoplasm of other parts of uterus; I10 Essential (primary) hypertension; E11.9 Type 2 diabetes mellitus without complications; Z79.84 Long term (current) use of oral hypoglycemic drugs; K21.9 Gastro-esophageal reflux disease without esophagitis; Z90.710 Acquired absence of both cervix and uterus; Z90.722 Acquired absence of ovaries, bilateral; Z95.2 Presence of prosthetic heart valve
CPT/HCPCS: 36415; 74176-TC; 80053; 81003; 81015; 83735; 85025; 85610; 87040; 87086; 96374; 99285-25